=== PATIENT | female | born 1990 | race Caucasian/White ===

== ENCOUNTER 2018-12-07 11:37 | Day surgery (SDC) | payer BC ==
[~2018-12-07] VITALS: Ht 160 cm; Wt 82.1 kg
[2018-12-07] VITALS (12 sets, daily range): BP systolic 117–156; BP diastolic 74–97
[~2018-12-07 11:37] MED LIST: NO HOME MEDS
[2018-12-07 12:52] LABS: BASOPHILS # (AUTO) 0.1 X10'3 (0-0.2); BASOPHILS % (AUTO) 0.5 % (0-1); EOSINOPHILS # (AUTO) 0.1 X10'3 (0-0.9); EOSINOPHILS % (AUTO) 1.3 % (0-6); LYMPHOCYTES # (AUTO) 2.2 X10'3 (1.1-4.8); LYMPHOCYTES % (AUTO) 20.1 % (21-51); MEAN CORPUSCULAR HEMOGLOBIN 27.6 PG (27.0-31.0); MEAN CORPUSCULAR VOLUME 83.5 FL (78-98); MEAN PLATELET VOLUME 8.7 FL (7.4-10.4); MONOCYTES # (AUTO) 0.6 X10'3 (0-0.9); MONOCYTES % (AUTO) 5.8 % (2-12); NEUTROPHILS % (AUTO) 72.3 % (42-75); PRE OP HEMATOCRIT 46.5 % (35.0-45.0); PRE OP HEMOGLOBIN 15.3 g/dL (12.0-16.0); PRE OP PLATELET COUNT 276 X10'3 (140-440); RED BLOOD COUNT 5.56 X10'6 (4.20-5.60); RED CELL DISTRIBUTION WIDTH 14.5 % (11.5-14.5)
[2018-12-07 13:10] LABS: HCG SERUM QL NEGATIVE
[2018-12-07] MEDS ORDERED: diazepam 5mg tablet PO ONE (13:30)
[2018-12-07] MEDS ORDERED: famotidine 20mg tablet PO ONE (13:30)
[2018-12-07] MEDS ORDERED: ringers solution, lacted 1,000 ML IV SCH ×2 (13:30→17:43)
--- NOTE | 2018-12-07 14:00 | NUR ---
(1245) IRREGULAR HR BETWEEN 81-93 BPM. DENIES HX OF CARDIAC ISSUES. STATES IS "VERY NERVOUS". SPOKE WITH DR MONTANEZ- LR 500MLS BOLUS GIVEN AND EKG ORDERED. (1320) AT TIME OF EKG FLUID BOLUS COMPLETED AND VALIUM PO ON BOARD. PT STATES FEELING MORE RELAXED. EKG PRESENTS WITH SINUS TACHYCARDIA AND REGULAR RHYTHM. (1400) AMB TO BR WITH NO COMPLAINTS. HR NSR ON MONITOR.
--- NOTE | 2018-12-07 15:36 | NUR ---
PATIENT RESTING COMFORTABLY WITH NO COMPLAINTS AND PARENTS AT BEDSIDE. INFORMED OF AWARE SURGERY START TIME DELAYED. REGULAR HR PRESENT.
--- NOTE | 2018-12-07 16:44 | NUR ---
PATIENT TRANSFERRED TO PACU (WITH PERSONAL BELONGINGS AND PARENTS PRESENT) IN ANTICIPATION OF SURGERY. IV PATENT WITH LR AT TKO ON A PUMP. REPORT GIVEN TO MARCIAL DUNCAN.
[2018-12-07] MEDS ORDERED: BUPIVAcaine/PF 2.5mg/ml (0.25%) 10ml vial ONE (17:10)
[2018-12-07] MEDS ORDERED: BUPIVAcaine/PF 2.5 mg/ml (0.25%) 30ml vial ONE (17:23)
[2018-12-07] MEDS ORDERED: sodium bicarbonate (8.4%) inj. 1 MEQ/ML ML ONE (17:25)
[2018-12-07] MEDS ORDERED: dexamethasone sod phosphate 4mg/ml inj. ONE ×2 (17:25→17:57)
[2018-12-07] MEDS ORDERED: fentaNYL/PF 50MCG/1 ML 2ML syringe ONE (17:37)
[2018-12-07] MEDS ORDERED: midazolam 2 mg/2 ml injection ONE (17:37)
[2018-12-07] MEDS ORDERED: ondansetron/PF 4mg/2ml inj IV PRN (17:45)
[2018-12-07] MEDS ORDERED: hydrALAZINE 20mg/ml inj. IV PRN (17:45)
[2018-12-07] MEDS ORDERED: propofol 10mg/ml 20ml vial IV ONE (17:45)
[2018-12-07] MEDS ORDERED: rocuronium 10mg/ml inj IV ONE (17:45)
[2018-12-07] MEDS ORDERED: labetalol 20mg/4ml (5mg/ml) syringe IV PRN (17:45)
[2018-12-07] MEDS ORDERED: morphine 4 MG/ML inj SYRINge IV PRN ×2 (17:45)
[2018-12-07] MEDS ORDERED: sevoflurane 250ml liquid IH ONE (17:45)
[2018-12-07] MEDS ORDERED: fentaNYL/PF 50MCG/1 ML 2ML syringe IV PRN ×2 (17:45)
[2018-12-07] MEDS ORDERED: LIDOcaine 2% (20mg/ml) 5ml vial ONE (17:45)
[2018-12-07] MEDS ORDERED: neostigmine methylsulfate 1 MG/ML 10ml vial ONE (17:45)
[2018-12-07] MEDS ORDERED: ondansetron/PF 4mg/2ml inj ONE (17:57)
[2018-12-07] MEDS ORDERED: glycopyrrolate 0.2mg/ml inj ONE (18:42)
[2018-12-07] MEDS ORDERED: oxyCODONE/APAP 5-325mg tablet PO ONE ×2 (19:00)
--- NOTE | 2018-12-07 19:07 | NUR ---
Received from OR via DES , accompanied by Anesthesiologist SERGIO and report given by Anesthesiolgist. PATIENT WITH 20G PIV IN LEFT UE RUNNING LR AT 100. DENIES PAIN AT THIS TIME. PATIENT WITH 10L MASK ON WITH 100% SATURATIONS. 3 ABDOMINAL LAP SITES WITH STERI STRIPS AND BANDAIDS PRESENT. NO DRAINAGE EVIDENT AT THIS TIME. VSS Addendum: 12/07/18 at 1915 by Elmer Julio RN, RN Amended: Links added.
--- NOTE | 2018-12-07 21:07 | NUR ---
ALL DC CRITERIA HAS BEEN MET. IV TAKEN OUT WITHOUT COMPLICATIONS. ALL INSTRUCTIONS COVERED AND ALL QUESTIONS ANSWERED. DRESSINGS CDI. OUT VIA WHEELCHAIR TO PERSONAL VEHICLE WHERE PATIENT WAS SECURED IN AND DRIVEN HOME BY FAMILY. VOIDED, AMBULATED, FAMILY DROVE PATIENT HOME. VSS. DRESSINGS CDI. Addendum: 12/07/18 at 2117 by Elmer Julio RN, RN Amended: Links added.
== END 2018-12-07 21:07 | disposition home or self-care (01) ==
LOC: PAS 11:37
PROVIDERS: ATTEND Obstetrics & Gynecology
DX: N80.1 Endometriosis of ovary (principal); K66.0 Peritoneal adhesions (postprocedural) (postinfection); N32.89 Other specified disorders of bladder; Z98.890 Other specified postprocedural states
CPT/HCPCS: 36415; 51700; 58662; 82948; 84703; 85025; 86885; 86900; 86901; 93005; J1100; J2001; J2250; J2405; J2704; J2710; J3010; J3490; J7030; J7120; A4355; A4618; A6250; A7000